=== PATIENT | male | born 1930 | race Caucasian/White ===

== ENCOUNTER 2017-09-22 10:04 | Day surgery (SDC) | payer OTHER, MEDICARE ==
[~2017-09-22] VITALS: Ht 161.3 cm; Wt 72.0 kg
[~2017-09-22 10:04] MED LIST: ASPIR 8181 M1 PO; ASPIRIN325 MG PO; CARDURA2 M1 PO; DAILY VALUE1 EACH PO; LASIX40 MG PO; LIPITOR10 MG PO; LISINOPRIL10 MG PO; NEPHRO-VITE,1 TABLET PO; PROCARDIA XL30 MG PO; ROCALTROL0.25 MCG PO; STOOL SOFTENER100 MG PO; SYNTHROID25 MCG PO; ZESTRIL30 MG PO; ZOLOFT25 MG PO
== END 2017-09-22 13:00 | disposition home or self-care (01) ==
LOC: CATH 10:04
DX: T82.858A Stenosis of other vascular prosthetic devices, implants and grafts, initial encounter (principal); N18.6 End stage renal disease; Z99.2 Dependence on renal dialysis; Z87.891 Personal history of nicotine dependence; Z79.82 Long term (current) use of aspirin
CPT/HCPCS: 87641; C1725; C1769; C1894; J1644; J2250; J3010

== ENCOUNTER 2017-11-08 13:42 | Emergency (ER) | payer OTHER ==
[2017-11-08 13:56] LABS: BASOPHIL (%) 0.4 % (0-1); EOSINOPHIL (%) 1.3 % (0-5); EOSINOPHIL COUNT 0.1 K/uL (0-0.3); HEMATOCRIT 31.3 % (38.0-50.0); HEMOGLOBIN 10.6 G/DL (12.5-16.6); IMMATURE GRANULOCYTE (%) 0.3 % (0.0-0.7); LYMPHOCYTE (%) 12.8 % (15-42); LYMPHOCYTE COUNT 1.2 K/uL (1.0-2.8); MCH 34.2 PG (29.0-34.0); MCHC 33.9 G/DL (30.0-36.0); MONOCYTE (%) 6.9 % (3-12); MONOCYTE COUNT 0.6 K/uL (0-0.8); NEUTROPHIL (%) 78.3 % (45-76); NEUTROPHIL COUNT 7.2 K/uL (1.8-6.4); PLATELET COUNT 140 K/uL (156-360); RBC DIS.WIDTH-SD 55.2 % (39-53); WHITE BLOOD COUNT 9.2 K/uL (4.1-10.2)
[2017-11-08 14:25] LABS: AMYLASE 60 IU/L (1-118); CHLORIDE 97 MEQ/L (99-109); POTASSIUM 4.3 MEQ/L (3.7-5.4); SODIUM 137 MEQ/L (136-147)
[2017-11-08 15:13] LABS: CREATININE 4.9 MG/DL (0.6-1.3); GFR ESTIMATE (CALCULATED) 12 mL/min/ (58.99-99999); GLUCOSE 141 mg/dL (70-99); LIPASE 89 U/L (1.0-51.0); UREA NITROGEN (BUN) 59 mg/dL (9-23)
[2017-11-08 15:16] LABS: SERUM ETHYL ALCOHOL < 10 mg/dL
[2017-11-08 15:32] LABS: TROP-I INTERPRETATION NEGATIVE; TROPONIN-I 0.02 ng/mL (0.0-0.30)
[2017-11-08 16:46] VITALS: BP 182/75
== END 2017-11-08 16:46 | disposition home or self-care (01) ==
LOC: TRA 13:42
PROVIDERS: Emergency Medicine
DX: Z04.3 Encounter for examination and observation following other accident (principal); I44.0 Atrioventricular block, first degree; R94.31 Abnormal electrocardiogram [ECG] [EKG]; E03.9 Hypothyroidism, unspecified; Z99.2 Dependence on renal dialysis; Z79.82 Long term (current) use of aspirin; Z88.8 Allergy status to other drugs, medicaments and biological substances
CPT/HCPCS: 71046; 80048; 81003; 82150; 83690; 84484; 85025; 86850; 86900; 86901; 93005; 99281; 99285; G0480